=== PATIENT | female | born 2000 | race Caucasian/White ===

== ENCOUNTER 2024-02-26 08:47 | Outpatient (CLI) | payer OTHER, SELFPAY | END 2024-02-26 08:48 | disposition home or self-care (01) | PROVIDERS: PCP Family Medicine; Visit Provider Family Medicine | DX: R53.83 Other fatigue (principal); Z13.6 Encounter for screening for cardiovascular disorders | CPT/HCPCS: 80048; 80061; 84443; 85025 ==

== ENCOUNTER 2024-03-11 13:48 | Outpatient (CLI) | payer OTHER, SELFPAY ==
--- NOTE | 2024-04-01 09:09 | W.PM.SLEEP ---
Sleep Study Details Details Interpreting Provider: Dagoberto Date of Sleep Study: 03/11/24 Sleep Study Details: STUDY TYPE:? Home unattended ? BMI:? 39.6 ORDERING PROVIDER:Zoraida Abdul INDICATION:? Concern about sleep apnea ? SLEEP SUMMARY:? 476 minutes monitored RESPIRATORY SUMMARY:? AHI 2.3, low oxygen 87, snoring 99.1% PERIODIC LIMB MOVEMENTS OF SLEEP:? Not recorded CARDIAC:? Range 44-110, mean 57.4 beats per minute IMPRESSION:? This study does not demonstrate clinically significant obstructive sleep apnea. If sleep disorder is strongly suspected would recommend an in-lab study. RECOMMENDATION: See above
== END 2024-03-11 13:49 | disposition home or self-care (01) ==
LOC: SLEEP 13:48
PROVIDERS: PCP Family Medicine; Visit Provider Family Medicine
DX: R53.83 Other fatigue (principal); R06.83 Snoring
CPT/HCPCS: 95806

== ENCOUNTER 2024-05-20 15:45 | Outpatient (CLI) | payer OTHER, SELFPAY ==
[2024-05-21 02:13] LABS: Chlamydia DNA Amplified* NOT DETECTED (No Detected); GC DNA Amplified* NOT DETECTED (No Detected)
[2024-05-22 18:21] LABS: HPV Source Cervix; HPV, High Risk by TMA Not Detected
== END 2024-05-20 15:46 | disposition home or self-care (01) ==
PROVIDERS: PCP Family Medicine; Visit Provider Family Medicine
DX: N89.8 Other specified noninflammatory disorders of vagina (principal); Z12.4 Encounter for screening for malignant neoplasm of cervix; Z11.51 Encounter for screening for human papillomavirus (HPV)
CPT/HCPCS: 87491; 87591; 87624; 87625; 88141; 88142

== ENCOUNTER 2024-08-19 15:44 | Outpatient (CLI) | payer OTHER, SELFPAY | END 2024-08-19 15:45 | disposition home or self-care (01) | PROVIDERS: PCP Family Medicine; Visit Provider Family Medicine | DX: B27.90 Infectious mononucleosis, unspecified without complication (principal); R79.89 Other specified abnormal findings of blood chemistry; Z01.818 Encounter for other preprocedural examination | CPT/HCPCS: 80048; 80076; 85025 ==

== ENCOUNTER 2024-08-30 11:08 | Day surgery (SDC) | payer OTHER, SELFPAY ==
[2024-08-30] VITALS (14 sets, daily range): BP systolic 100–148; BP diastolic 67–111; PULSE 64–93; RESP 14–18; TEMP 36.8; O2SAT 96–100; BMI 33.6
[2024-08-30 11:34] LABS: Ur HCG Qualitative* Negative (Negative)
[2024-08-30] MEDS: LACTATED RINGERS 1000 ML 1,000 ML 100 ML IV (11:35)
[2024-08-30] MEDS: SODIUM CHLORIDE 0.9 % (FLUSH) 10 ML SYRINGE IVF (11:36)
--- NOTE | 2024-08-30 13:05 | P.ANES_ITS ---
Anesthesia Charges Start Date/Time Anesthesia Start Date: 08/30/24 Anesthesia Start Time: 12:28 Stop Date/Time Anesthesia Stop Date: 08/30/24 Anesthesia Stop Time: 13:06 Coding CPT Codes CPT Codes: ANESTH PROCEDURE ON MOUTH - 12216 ([id number]) P2 - PATIENT W/MILD SYST DISEASE, QK - WELFARE CASE WORKER 2-4 CNCRNT ANES PROC, QX - INSURANCE CLAIMS ADJUSTER SVC W/ MD MED DIRECTION
--- NOTE | 2024-08-30 13:05 | W.ANESCHARGE ---
Anesthesia Charges Start Date/Time Anesthesia Start Date: 08/30/24 Anesthesia Start Time: 12:28 Stop Date/Time Anesthesia Stop Date: 08/30/24 Anesthesia Stop Time: 13:06 Coding CPT Codes CPT Codes: ANESTH PROCEDURE ON MOUTH - 36734 ([id number]) P2 - PATIENT W/MILD SYST DISEASE, QK - COLD WATER MACHINE OPERATOR 2-4 CNCRNT ANES PROC, QX - COLLECTIONS OFFICER SVC W/ MD MED DIRECTION
--- NOTE | 2024-08-30 13:14 | P.ANES_ITS ---
Anesthesia Charges Start Date/Time Anesthesia Start Date: 08/30/24 Anesthesia Start Time: 12:28 Stop Date/Time Anesthesia Stop Date: 08/30/24 Anesthesia Stop Time: 13:06 Coding CPT Codes CPT Codes: ANESTH PROCEDURE ON MOUTH - 36894 ([id number]) P2 - PATIENT W/MILD SYST DISEASE, QX - PAINT SPRAY INSPECTOR SVC W/ MD MED DIRECTION, QK - FEED RESEARCH AIDE 2-4 CNCRNT ANES PROC
--- NOTE | 2024-08-30 13:14 | W.ANESCHARGE ---
Anesthesia Charges Start Date/Time Anesthesia Start Date: 08/30/24 Anesthesia Start Time: 12:28 Stop Date/Time Anesthesia Stop Date: 08/30/24 Anesthesia Stop Time: 13:06 Coding CPT Codes CPT Codes: ANESTH PROCEDURE ON MOUTH - 60865 ([id number]) P2 - PATIENT W/MILD SYST DISEASE, QX - ESL PROFESSOR SVC W/ MD MED DIRECTION, QK - HOME PARAPROFESSIONAL 2-4 CNCRNT ANES PROC
--- NOTE | 2024-08-30 13:39 | W.PM.ENTPROC ---
Procedure Note Date of procedure: 08/30/24 Procedure: Preoperative diagnosis chronic tonsillitis, adenotonsillar hypertrophy, upper airway obstruction, nasal obstruction Postoperative diagnosis same Procedure adenotonsillectomy Under general endotracheal anesthesia the patient was prepped and draped in usual fashion. The McIvor mouth gag was inserted the tongue retracted forward. No submucous cleft was noted on inspection or palpation. The right and left tonsils were removed with a combination of needlepoint cautery, bipolar cautery and suction cautery. Meticulous hemostasis was achieved. The adenoid pad was visualized with a laryngeal mirror and removed with suction cautery. The patient was extubated in the operating room taken recovery in satisfactory condition. Blood loss was less than 10 mL. Surgeon: Zachary Arenas MD
[2024-08-30] MEDS: IBUPROFEN 100 MG/5 ML SUSP 200 MG PO (13:46)
== END 2024-08-30 15:07 | disposition home or self-care (01) ==
LOC: OR 11:08
PROVIDERS: Anesthesiology; PCP Family Medicine; Visit Provider Otolaryngology
PROC: (CPT 42821; principal; 2024-08-30 12:15)
DX: J35.01 Chronic tonsillitis (principal); J35.3 Hypertrophy of tonsils with hypertrophy of adenoids; J34.89 Other specified disorders of nose and nasal sinuses
CPT/HCPCS: 42821; 00170; 81025; 88304; A9270; J0330; J1100; J2405; J2704; J3010; J7120

== ENCOUNTER 2024-10-04 11:25 | Outpatient (CLI) | payer OTHER, SELFPAY | END 2024-10-04 11:26 | disposition home or self-care (01) | LOC: FBOREF 11:26 | PROVIDERS: PCP Family Medicine; Visit Provider Family Medicine | DX: B27.90 Infectious mononucleosis, unspecified without complication (principal) | CPT/HCPCS: 80076 ==